=== PATIENT | male | born 1955 | race Caucasian/White ===

== ENCOUNTER 2018-07-15 12:17 | Outpatient (CLI) | payer OTHER ==
--- NOTE | 2018-07-15 13:19 | CT ---
ABDOMEN AND PELVIC CT SCAN WITHOUT IV CONTRAST: Date: 07/15/18 HISTORY: Kidney stones, right flank pain, and hematuria. COMPARISON: 03/22/17. FINDINGS: The hemidiaphragms and dome of the right lobe of the liver are not completely included on this study. Status post cholecystectomy. No significant ductal dilatation. Pancreas, spleen, and adrenal glands are unremarkable. Several nonobstructing right renal calculi. Several subtle low attenuation foci in both kidneys, potentially small cysts. Mild dilatation of the right upper renal collecting system and right ureter down to the pelvis where there appear to be two obstructing immediately adjacent distal right ureteral calculi, the distal one measuring approximately 0.5 cm and the more proximal one aries uring approximately 0.3 cm. No evidence for left-sided obstructing calculus. No definitive left renal calculus. No CT evidence for acute appendicitis. Bilateral fat-containing inguinal hernias. IMPRESSION: Mild to moderately obstructing two distal right ureteral calculi. Nonobstructing right renal calculi. No evidence for left-sided calculus. Bilateral fat-containing inguinal hernias. POS: [facility]
== END 2018-07-15 12:18 | disposition home or self-care (01) ==
LOC: CT 12:17
PROVIDERS: ATTEND Specialist
DX: N20.2 Calculus of kidney with calculus of ureter (principal); K40.20 Bilateral inguinal hernia, without obstruction or gangrene, not specified as recurrent
CPT/HCPCS: 74176

== ENCOUNTER 2020-06-21 09:31 | Outpatient (CLI) | payer MEDICARE, BC ==
[2020-06-21 19:07] LABS: SARS-CoV-2 PCR by NAA Not Detected (NotDetected)
== END 2020-06-21 09:32 | disposition home or self-care (01) ==
LOC: LABBT 09:31
PROVIDERS: ATTEND Neurological Surgery
DX: Z01.812 Encounter for preprocedural laboratory examination (principal); M43.16 Spondylolisthesis, lumbar region; Z20.822 Contact with and (suspected) exposure to COVID-19
CPT/HCPCS: U0003; U0005; 87635

== ENCOUNTER 2020-06-24 06:23 | Day surgery (SDC) | payer MEDICARE, BC ==
[2020-06-23 11:04] VITALS: BMI 30.6
[2020-06-24] MEDS ORDERED: Bupivacaine PF 0.5% 30 ML VIAL ONE (06:38)
[2020-06-24] MEDS ORDERED: Thrombin 5000 UNITS/5 ML VIAL ONE (06:38)
[2020-06-24] MEDS ORDERED: EPINEPHrine 1 MG/ML AMP ONE (06:38)
[2020-06-24] MEDS ORDERED: Fentanyl 100 MCG/2 ML VIAL ONE ×3 (08:20→12:03)
[2020-06-24] MEDS ORDERED: Famotidine/PF 20 mg/2ml Vial ONE (08:20)
[2020-06-24] MEDS ORDERED: SUGAMMADEX SODIUM 200 MG/2 ML VIAL ONE (08:25)
[2020-06-24] MEDS ORDERED: Midazolam HCl 2 mg/2 ml Vial ONE (08:25)
[2020-06-24] MEDS ORDERED: Scopolamine 1.5 mg/72 hour Patch ONE (08:25)
[2020-06-24] MEDS ORDERED: Rocuronium Bromide 10 MG/ML (10ML VIAL) ONE (09:17)
[2020-06-24] MEDS ORDERED: Lidocaine 1% PF 5 ML VIAL ONE (09:17)
[2020-06-24] MEDS ORDERED: Dexamethasone 20 MG/5 ML VIAL ONE (09:17)
[2020-06-24] MEDS ORDERED: Ketorolac Tromethamine 30 MG/ML VIAL ONE (09:17)
[2020-06-24] MEDS ORDERED: Ondansetron PF 4 MG/2 ML Vial ONE (09:17)
[2020-06-24] MEDS ORDERED: ePHEDrine 50 MG/ML VIAL ONE (09:17)
[2020-06-24] MEDS ORDERED: PHENYLEPHRINE-NS 100 MCG/ML 10 ML SYRINGE ONE (09:17)
[2020-06-24] MEDS ORDERED: PROPOFOL 200 MG/20 ML VIAL ONE (09:17)
[2020-06-24] MEDS ORDERED: Metoclopramide HCl 10 MG/2 ML VIAL ONE (09:17)
[2020-06-24] MEDS ORDERED: Glycopyrrolate 0.2 MG/ML 5 ML SYRINGE ONE (09:17)
[2020-06-24] MEDS ORDERED: Tamsulosin HCl 0.4 MG CAP ONE (11:54)
[2020-06-24] MEDS ORDERED: HYDROcodone/Acetaminophen 10/325 mg Tablet ONE (16:03)
== END 2020-06-24 16:37 | disposition home or self-care (01) ==
LOC: SDC 06:23
PROVIDERS: ATTEND Neurological Surgery
PROC: 0SG0071 Fusion of Lumbar Vertebral Joint with Autologous Tissue Substitute, Posterior Approach, Posterior Column, Open Approach (ICD-10-PCS; principal; 2020-06-24)
DX: M43.16 Spondylolisthesis, lumbar region (principal); M54.16 Radiculopathy, lumbar region; M43.06 Spondylolysis, lumbar region; M54.12 Radiculopathy, cervical region; Z88.8 Allergy status to other drugs, medicaments and biological substances; Z91.040 Latex allergy status; Z91.041 Radiographic dye allergy status
CPT/HCPCS: 20930; 20936; 22612; 22853; 76000; C1713 ×2; C1768; J0171; J0690; J1100; J1885; J2250; J2405; J2704; J2765; J3010; J3490; S0020; S0028

== ENCOUNTER 2021-08-31 07:41 | Outpatient (CLI) | payer MEDICARE, BC | END 2021-08-31 07:42 | disposition home or self-care (01) | LOC: SCSMRI 07:41 | PROVIDERS: ATTEND Neurological Surgery | DX: M51.16 Intervertebral disc disorders with radiculopathy, lumbar region (principal) | CPT/HCPCS: 72158; 82565 ==

== ENCOUNTER 2021-09-01 07:43 | Outpatient (CLI) | payer MEDICARE, BC | END 2021-09-01 07:44 | disposition home or self-care (01) | LOC: SCSMRI 07:43 | PROVIDERS: ATTEND Specialist | DX: R13.10 Dysphagia, unspecified (principal); M48.8X9 Other specified spondylopathies, site unspecified | CPT/HCPCS: 70336 ==

== ENCOUNTER 2021-09-26 13:23 | Outpatient (CLI) | payer MEDICARE, BC | END 2021-09-26 13:24 | disposition home or self-care (01) | LOC: LABBT 13:23 | PROVIDERS: ATTEND Neurological Surgery | DX: M54.12 Radiculopathy, cervical region (principal) | CPT/HCPCS: U0003; U0005 ==

== ENCOUNTER 2021-09-29 06:26 | Day surgery (SDC) | payer MEDICARE, BC ==
[2021-09-27 14:07] VITALS: BMI 32.1
[2021-09-29] MEDS ORDERED: Thrombin 5000 UNITS/5 ML VIAL ONE (08:41)
[2021-09-29] MEDS ORDERED: Scopolamine 1.5 mg/72 hour Patch ONE (08:46)
[2021-09-29] MEDS ORDERED: CEFAZOLIN 2 GM VIAL ONE ×2 (09:21→13:00)
[2021-09-29] MEDS ORDERED: Sodium Chloride 0.9% 100 ML ONE ×2 (09:21→13:00)
[2021-09-29] MEDS ORDERED: fentaNYL Citrate/PF 100 MCG/2 ML SYRINGE ONE (09:22)
[2021-09-29] MEDS ORDERED: Lidocaine 1% PF 5 ML VIAL ONE (09:33)
[2021-09-29] MEDS ORDERED: PROPOFOL 200 MG/20 ML VIAL ONE (09:33)
[2021-09-29] MEDS ORDERED: PHENYLEPHRINE-NS 100 MCG/ML 10 ML SYRINGE ONE (09:33)
[2021-09-29] MEDS ORDERED: ePHEDrine 50 MG/ML VIAL ONE (09:33)
[2021-09-29] MEDS ORDERED: Rocuronium Bromide 10 MG/ML (10ML VIAL) ONE (09:33)
[2021-09-29] MEDS ORDERED: Glycopyrrolate 0.2 MG/ML 5 ML SYRINGE ONE (09:33)
[2021-09-29] MEDS ORDERED: Dexamethasone 20 MG/5 ML VIAL ONE (09:33)
[2021-09-29] MEDS ORDERED: Ondansetron PF 4 MG/2 ML Vial ONE (09:33)
[2021-09-29] MEDS ORDERED: Tamsulosin HCl 0.4 MG CAP ONE (11:23)
[2021-09-29] MEDS ORDERED: HYDROcodone/Acetaminophen 5/325 mg Tablet ONE ×2 (13:00→13:45)
== END 2021-09-29 14:00 | disposition home or self-care (01) ==
LOC: SDC 06:26
PROVIDERS: ATTEND Neurological Surgery
PROC: 0RG10A0 Fusion of Cervical Vertebral Joint with Interbody Fusion Device, Anterior Approach, Anterior Column, Open Approach (ICD-10-PCS; principal; 2021-09-29)
DX: M48.02 Spinal stenosis, cervical region (principal); M47.22 Other spondylosis with radiculopathy, cervical region; M47.12 Other spondylosis with myelopathy, cervical region; G89.29 Other chronic pain; Z79.899 Other long term (current) drug therapy; Z91.040 Latex allergy status; Z91.041 Radiographic dye allergy status; Z98.1 Arthrodesis status
CPT/HCPCS: 20930; 20936; 22551; 22853; 76000; C1713 ×2; C1776; J1100; J2405; J2704; J3490

== ENCOUNTER 2021-10-24 13:30 | Outpatient (CLI) | payer MEDICARE, BC | END 2021-10-24 13:31 | disposition home or self-care (01) | LOC: TBSIIMAG 13:30 | PROVIDERS: ATTEND Neurological Surgery | DX: M25.542 Pain in joints of left hand (principal); M25.532 Pain in left wrist ==

== ENCOUNTER 2021-11-07 14:19 | Outpatient (CLI) | payer MEDICARE, BC | END 2021-11-07 14:20 | disposition home or self-care (01) | LOC: LABBT 14:19 | PROVIDERS: ATTEND Neurological Surgery | DX: M54.16 Radiculopathy, lumbar region (principal); Z20.822 Contact with and (suspected) exposure to COVID-19 | CPT/HCPCS: 87811 ==

== ENCOUNTER 2021-11-09 09:14 | Outpatient (CLI) | payer MEDICARE, BC ==
[2021-11-09 13:41] LABS: SARS-CoV-2 NAA Rapid Test Not Detected (NotDetected)
== END 2021-11-09 09:15 | disposition home or self-care (01) ==
LOC: LABBT 09:14
PROVIDERS: ATTEND Neurological Surgery
DX: Z20.822 Contact with and (suspected) exposure to COVID-19 (principal)
CPT/HCPCS: U0002

== ENCOUNTER 2021-11-10 05:34 | Day surgery (SDC) | payer MEDICARE, BC ==
[2021-11-08 12:56] VITALS: BMI 31.4
[2021-11-10] MEDS ORDERED: Thrombin 5000 UNITS/5 ML VIAL ONE (06:33)
[2021-11-10] MEDS ORDERED: EPINEPHrine 1 MG/ML AMP ONE (06:33)
[2021-11-10] MEDS ORDERED: Bupivacaine PF 0.5% 30 ML VIAL ONE (06:33)
[2021-11-10] MEDS ORDERED: fentaNYL Citrate/PF 100 MCG/2 ML SYRINGE ONE (06:44)
[2021-11-10] MEDS ORDERED: Scopolamine 1.5 mg/72 hour Patch ONE (06:58)
[2021-11-10] MEDS ORDERED: Ondansetron PF 4 MG/2 ML Vial ONE (07:14)
[2021-11-10] MEDS ORDERED: Lidocaine 1% PF 5 ML VIAL ONE (07:14)
[2021-11-10] MEDS ORDERED: Glycopyrrolate 0.2 MG/ML 5 ML SYRINGE ONE (07:14)
[2021-11-10] MEDS ORDERED: Rocuronium Bromide 10 MG/ML (10ML VIAL) ONE (07:14)
[2021-11-10] MEDS ORDERED: Dexamethasone 20 MG/5 ML VIAL ONE (07:14)
[2021-11-10] MEDS ORDERED: ePHEDrine 50 MG/ML VIAL ONE (07:14)
[2021-11-10] MEDS ORDERED: PROPOFOL 200 MG/20 ML VIAL ONE (07:14)
[2021-11-10] MEDS ORDERED: HYDROmorphone 0.5 MG/0.5 ML SYRINGE ONE (08:45)
[2021-11-10] MEDS ORDERED: Tamsulosin HCl 0.4 MG CAP ONE (08:49)
[2021-11-10] MEDS ORDERED: Fentanyl 100 MCG/2 ML VIAL ONE ×2 (08:58→09:09)
[2021-11-10] MEDS ORDERED: CEFAZOLIN 2 GM VIAL ONE (11:53)
[2021-11-10] MEDS ORDERED: Sodium Chloride 0.9% 100 ML ONE (11:53)
== END 2021-11-10 15:10 | disposition home or self-care (01) ==
LOC: SDC 05:34
PROVIDERS: ATTEND Neurological Surgery
PROC: 01NB0ZZ Release Lumbar Nerve, Open Approach (ICD-10-PCS; principal; 2021-11-10)
DX: M48.062 Spinal stenosis, lumbar region with neurogenic claudication (principal); M54.16 Radiculopathy, lumbar region; G89.29 Other chronic pain; Z79.899 Other long term (current) drug therapy; Z91.040 Latex allergy status; Z91.041 Radiographic dye allergy status; Z98.1 Arthrodesis status
CPT/HCPCS: 76000; J0171; J0690; J1100; J1170; J2405; J2704; J2710; J3010; J3490; S0020

== ENCOUNTER 2022-05-02 07:36 | Day surgery (SDC) | payer MEDICARE, BC ==
[2022-05-01 10:27] VITALS: BMI 31.4
[2022-05-02] MEDS ORDERED: Fentanyl 250 MCG/5 ML VIAL ONE (07:44)
[2022-05-02] MEDS ORDERED: SUGAMMADEX SODIUM 200 MG/2 ML VIAL ONE (07:44)
[2022-05-02] MEDS ORDERED: EPINEPHrine 1 MG/ML AMP ONE (08:34)
[2022-05-02] MEDS ORDERED: PROPOFOL 200 MG/20 ML VIAL ONE (08:53)
[2022-05-02] MEDS ORDERED: Dexamethasone 20 MG/5 ML VIAL ONE (08:53)
[2022-05-02] MEDS ORDERED: Rocuronium Bromide 10 MG/ML (10ML VIAL) ONE (08:53)
[2022-05-02] MEDS ORDERED: Ondansetron PF 4 MG/2 ML Vial ONE (08:53)
== END 2022-05-02 10:50 | disposition home or self-care (01) ==
LOC: SDC 07:36
PROVIDERS: ATTEND Otolaryngology Plastic Surgery within the Head & Neck
PROC: 0CS Mouth and Throat, Reposition (ICD-10-PCS; principal; 2022-05-02)
DX: J38.7 Other diseases of larynx (principal); R49.0 Dysphonia; R13.10 Dysphagia, unspecified; Z79.899 Other long term (current) drug therapy; Z91.040 Latex allergy status; Z91.041 Radiographic dye allergy status
CPT/HCPCS: J0171; J1100; J2405; J2704; J3010

== ENCOUNTER 2022-06-26 13:55 | Outpatient (CLI) | payer MEDICARE, BC | END 2022-06-26 13:56 | disposition home or self-care (01) | LOC: TBSIIMAG 13:55 | PROVIDERS: ATTEND Physician Assistant | DX: M54.50 Low back pain, unspecified (principal); M54.2 Cervicalgia; M47.816 Spondylosis without myelopathy or radiculopathy, lumbar region; M47.812 Spondylosis without myelopathy or radiculopathy, cervical region; Z98.890 Other specified postprocedural states | CPT/HCPCS: 72040; 72100 ==

== ENCOUNTER 2022-10-04 11:43 | Outpatient (CLI) | payer MEDICARE, BC | END 2022-10-04 11:44 | disposition home or self-care (01) | LOC: SCSMRI 11:43 | PROVIDERS: ATTEND Neurological Surgery | DX: M54.6 Pain in thoracic spine (principal); M47.814 Spondylosis without myelopathy or radiculopathy, thoracic region; M48.02 Spinal stenosis, cervical region | CPT/HCPCS: 72146 ==

== ENCOUNTER 2022-11-15 14:10 | Outpatient (CLI) | payer MEDICARE, BC | END 2022-11-15 14:11 | disposition home or self-care (01) | LOC: LABBT 14:10 | PROVIDERS: ATTEND Neurological Surgery | DX: Z01.810 Encounter for preprocedural cardiovascular examination (principal); M54.14 Radiculopathy, thoracic region | CPT/HCPCS: 93005; 93010 ==

== ENCOUNTER 2022-11-19 05:41 | Day surgery (SDC) | payer MEDICARE, BC ==
[2022-11-15 14:46] VITALS: BMI 32.3
[2022-11-19] MEDS ORDERED: Fentanyl 250 MCG/5 ML VIAL ONE (06:24)
[2022-11-19] MEDS ORDERED: Thrombin 5000 UNITS/5 ML VIAL ONE (06:42)
[2022-11-19] MEDS ORDERED: Bupivacaine HCl 0.5%/Epinephrine 1:200,000/PF 30 ml Vial ONE (06:42)
[2022-11-19] MEDS ORDERED: CEFAZOLIN 2 GM VIAL ONE ×2 (06:53→11:35)
[2022-11-19] MEDS ORDERED: Sodium Chloride 0.9% 100 ML ONE ×2 (06:53→11:35)
[2022-11-19] MEDS ORDERED: Scopolamine 1.5 mg/72 hour Patch ONE (06:59)
[2022-11-19] MEDS ORDERED: Famotidine/PF 20 mg/2ml Vial ONE (06:59)
[2022-11-19] MEDS ORDERED: Lidocaine 1% PF 5 ML VIAL ONE (07:00)
[2022-11-19] MEDS ORDERED: Ondansetron PF 4 MG/2 ML Vial ONE (07:00)
[2022-11-19] MEDS ORDERED: Ketorolac Tromethamine 30 MG/ML VIAL ONE (07:00)
[2022-11-19] MEDS ORDERED: ePHEDrine Sulfate 50 MG/10 ML VIAL ONE (07:00)
[2022-11-19] MEDS ORDERED: Dexamethasone 20 MG/5 ML VIAL ONE (07:00)
[2022-11-19] MEDS ORDERED: diphenhydrAMINE 50 MG/ML VIAL ONE (07:00)
[2022-11-19] MEDS ORDERED: Rocuronium Bromide 10 MG/ML (10ML VIAL) ONE (07:00)
[2022-11-19] MEDS ORDERED: Metoclopramide HCl 10 MG/2 ML VIAL ONE (07:00)
[2022-11-19] MEDS ORDERED: PROPOFOL 200 MG/20 ML VIAL ONE (07:00)
[2022-11-19] MEDS ORDERED: Promethazine HCl 25 MG/ML VIAL ONE (07:09)
[2022-11-19] MEDS ORDERED: Sevoflurane 250 ML INH ANEST BOTTLE ONE (07:22)
[2022-11-19] MEDS ORDERED: fentaNYL 50 mcg/mL 1 mL Vial ONE (09:14)
[2022-11-19] MEDS ORDERED: Tamsulosin HCl 0.4 MG CAP ONE (09:14)
== END 2022-11-19 12:37 | disposition home or self-care (01) ==
LOC: SDC 05:41
PROVIDERS: ATTEND Neurological Surgery
PROC: 00NX0ZZ Release Thoracic Spinal Cord, Open Approach (ICD-10-PCS; principal; 2022-11-19)
DX: M54.14 Radiculopathy, thoracic region (principal); I10 Essential (primary) hypertension; M48.04 Spinal stenosis, thoracic region; Z98.1 Arthrodesis status; Z90.49 Acquired absence of other specified parts of digestive tract; Z79.899 Other long term (current) drug therapy; Z91.041 Radiographic dye allergy status; Z91.040 Latex allergy status
CPT/HCPCS: 63046; C1713; J3010; J1100; J1200; J1885; J2405; J2550; J2704; J2765; J3490; S0028